=== PATIENT | female | born 1985 | race African-American/Black ===

== ENCOUNTER 2016-07-12 13:47 | Observation (INO) | payer MEDICAID ==
[~2016-07-12] VITALS: Ht 165.1 cm; Wt 97.5 kg
[~2016-07-12 13:47] MED LIST: INSNPH
[2016-07-12] MEDS ORDERED: PREN-88 PO (14:52)
[2016-07-12] MEDS ORDERED: REG INSULIN (14:52)
[2016-07-12] MEDS ORDERED: FOLI-43 PO (14:52)
[2016-07-12] MEDS ORDERED: BISA-81 PO (14:52)
[2016-07-12] MEDS ORDERED: NPH (14:52)
[2016-07-12] MEDS ORDERED: DOCU-138 PO (14:52)
== END 2016-07-12 15:15 | disposition home or self-care (01) ==
LOC: L&D 13:47
PROVIDERS: ADMIT Obstetrics & Gynecology; ATTEND Obstetrics & Gynecology
DX: O26.852 Spotting complicating pregnancy, second trimester (principal); R25.2 Cramp and spasm; Z3A.24 24 weeks gestation of pregnancy
CPT/HCPCS: 99281; G0378

== ENCOUNTER 2017-11-02 03:28 | Emergency (ER) | payer MEDICAID ==
[~2017-11-02] VITALS: Ht 165.1 cm; Wt 96.0 kg
[~2017-11-02 03:28] MED LIST changes: +BISA-81 PO; +DOCU-138 PO; +FOLI-43 PO; -INSNPH; +NPH; +PREN-88 PO; +REG INSULIN
[2017-11-02 03:35] VITALS: BP 142/95
== END 2017-11-02 05:30 | disposition left against medical advice (07) ==
LOC: ER 04:00
DX: Z53.21 Procedure and treatment not carried out due to patient leaving prior to being seen by health care provider (principal)

== ENCOUNTER 2018-09-01 02:44 | Inpatient (IN) | payer MEDICAID ==
[~2018-09-01] VITALS: Ht 165.1 cm; Wt 91.3 kg
[2018-09-01] VITALS (53 sets, daily range): BP systolic 78–130; BP diastolic 37–98
[2018-09-01] MEDS ORDERED: ONDANSETRON HCL 4MG/2ML INJ IV STA (03:15)
[2018-09-01] MEDS ORDERED: SODIUM CHLORIDE 0.9% 1,000 ML IV ONE ×2 (03:15→04:00)
[2018-09-01 03:25] LABS: BASOPHILS % 0.7 % (0.0-2.0); HEMATOCRIT. 43.2 % (36.0-48.0); MEAN CORPUSCULAR HEMOGLOBIN 25.5 pg (28.0-32.0); MEAN CORPUSCULAR VOLUME 78.7 fL (81.0-99.0); MEAN PLATELET VOLUME 8.1 fl (7.4-10.4); MONOCYTES % 2.4 % (2.0-8.0); NEUTROPHILS % 88.9 % (40.0-76.0); PLATELET 362 x1000/uL (130-400); RED CELL DISTRIBUTION WIDTH 16.2 % (11.6-14.6)
[2018-09-01 03:31] LABS: CHLORIDE 103 mEq/L (98-107)
[2018-09-01 03:42] LABS: BETA HYDROXYBUTYRATE 5.4 mMol/L (0.0-0.3)
[2018-09-01] MEDS ORDERED: INSULIN REGULAR (DRIP) 100 UNITS in SODIUM CHLORIDE 0.9% 99 ML IV SCH ×5 (04:30→12:30)
[2018-09-01 05:53] LABS: CLARITY URINE CLEAR (CLEAR); COLOR URINE YELLOW (YELLOW); KETONES URINE 4+ (NEGATIVE); LEUKOCYTE ESTERASE URINE NEGATIVE (NEGATIVE); NITRITE URINE NEGATIVE (NEGATIVE); OCCULT BLOOD URINE NEGATIVE (NEGATIVE); PROTEIN URINE NEGATIVE (NEGATIVE); SPECIFIC GRAVITY URINE 1.032 (1.005-1.030); UROBILINOGEN URINE 0.2 E.U./dL (0.2-1.0)
[2018-09-01] MEDS ORDERED: INSULIN REGULAR (DRIP) 100 UNITS in SODIUM CHLORIDE 0.9% 100 ML IV SCH (11:00)
[2018-09-01] MEDS ORDERED: ONDANSETRON HCL 4MG/2ML INJ IV PRN (11:00)
[2018-09-01] MEDS ORDERED: SODIUM CHLORIDE 0.9% 1,000 ML IV SCH (11:00)
[2018-09-01] MEDS ORDERED: HYDROCODONE/ACETAMINOPHEN 5/325MG TABLET PO PRN (11:00)
[2018-09-01] MEDS ORDERED: IPRATROPIUM/ALBUTEROL 0.5-3(2.5)MG/3ML NEB INH PRN (11:00)
[2018-09-01] MEDS ORDERED: ACETAMINOPHEN 325MG TABLET PO PRN (11:00)
[2018-09-01] MEDS ORDERED: LORAZEPAM 0.5MG TABLET PO PRN (11:00)
[2018-09-01] MEDS ORDERED: CLONIDINE 0.1MG TABLET PO PRN (11:00)
[2018-09-01] MEDS ORDERED: DOCUSATE SODIUM 100MG CAPSULE PO PRN (11:00)
[2018-09-01] MEDS ORDERED: DEXTROSE 50% WATER 50ML SYRINGE IV PRN ×3 (12:15→21:00)
[2018-09-01] MEDS: BLOOD SUGAR DIAGNOSTIC STRIP TEST SCH ×8 (12:30→21:36)
[2018-09-01] MEDS: NICOTINE 7MG PATCH TD SCH (14:00)
[2018-09-01 16:30] LABS: CHLORIDE 110 mEq/L (98-107)
[2018-09-01 16:37] LABS: HCG SCREEN NEGATIVE
[2018-09-01] MEDS: INSULIN LISPRO 100 UNITS/ML SUBCUT SCH (21:00)
[2018-09-01] MEDS ORDERED: POTASSIUM CHLORIDE 20MEQ TABLET SR PO NR (21:45)
[2018-09-01] MEDS ORDERED: INSULIN GLARGINE UD 100 UNITS/ML SYR SUBCUT SCH (22:00)
[2018-09-02] VITALS (27 sets, daily range): BP systolic 88–134; BP diastolic 54–80
[2018-09-02] MEDS: INSULIN LISPRO 100 UNITS/ML SUBCUT SCH ×6 (00:50→13:30)
[2018-09-02] MEDS: BLOOD SUGAR DIAGNOSTIC STRIP TEST SCH ×4 (00:51→12:00)
[2018-09-02] MEDS: NICOTINE 7MG PATCH TD SCH (08:28)
[2018-09-02 14:01] LABS: *AMPHETAMINES SCREEN URINE NEGATIVE (NEGATIVE); *BARBITURATES SCREEN URINE NEGATIVE (NEGATIVE)
[2018-09-02 14:02] LABS: *BENZODIAZEPINES SCREEN URINE NEGATIVE (NEGATIVE); *COCAINE SCREEN URINE NEGATIVE (NEGATIVE); CANNABINOID URINE SCREEN NEGATIVE (NEGATIVE); METHADONE URINE SCREEN NEGATIVE (NEGATIVE); OPIATES URINE SCREEN NEGATIVE (NEGATIVE); PHENCYCLIDINE URINE SCREEN NEGATIVE (NEGATIVE)
== END 2018-09-02 14:54 | disposition left against medical advice (07) | DRG 420 ==
LOC: ER 02:44 → MICUSO 03:57 → EDBEDREQSVC 03:58 → EDBEDREQTM 03:58 → EDBEDREQ 03:58 → ENRESERV 06:56 → MICUSO 08:00
PROVIDERS: ADMIT Internal Medicine; ATTEND Internal Medicine
DX: E10.10 Type 1 diabetes mellitus with ketoacidosis without coma (principal); E87.2 Acidosis; D72.829 Elevated white blood cell count, unspecified; E78.5 Hyperlipidemia, unspecified; Z53.21 Procedure and treatment not carried out due to patient leaving prior to being seen by health care provider; Z72.0 Tobacco use; Z79.4 Long term (current) use of insulin; Z98.891 History of uterine scar from previous surgery; Z68.33 Body mass index [BMI] 33.0-33.9, adult; R81 Glycosuria
CPT/HCPCS: 36415; 71045; 80048; 80305; 82010; 82962; 83605; 84703; 96361; 96365; 96375; 99291; J1815; J2405; J7030; J7050

== ENCOUNTER 2019-01-28 16:32 | Emergency (ER) | payer MEDICAID ==
[~2019-01-28] VITALS: Ht 165.1 cm; Wt 82.0 kg
[2019-01-28 16:44] VITALS: BP 124/75
== END 2019-01-28 17:35 | disposition left against medical advice (07) ==
LOC: ER 16:32
DX: Z53.21 Procedure and treatment not carried out due to patient leaving prior to being seen by health care provider (principal)
CPT/HCPCS: 82962